=== PATIENT | female | born 2000 | race Caucasian/White ===

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

== ENCOUNTER 2018-11-04 00:29 | Emergency (ER) | payer MEDICAID ==
[~2018-11-04] VITALS: Ht 162.6 cm; Wt 78.8 kg
[~2018-11-04 00:29] MED LIST: ACET500C5 PO; CEPH-443 PO; IBUP800T48 PO
[2018-11-04 00:32] VITALS: BP 119/66; PULSE 64; RESP 20; Ht 162.6 cm; Wt 78.8 kg
[2018-11-04] MEDS ORDERED: IBUPROFEN 800 MG TAB PO ONE (01:30)
== END 2018-11-04 01:50 | disposition home or self-care (01) ==
LOC: FTE 00:29
DX: K08.9 Disorder of teeth and supporting structures, unspecified (principal)
CPT/HCPCS: 81025; Z7502; Z7610; 99282